=== PATIENT | female | born 1980 | race Two or more races ===

== ENCOUNTER 2023-05-28 21:01 | Inpatient (IN) ==
[2023-05-28] MEDS ORDERED: SODIUM CHLORIDE 0.9% 1,000 ML IV ONE ×2 (21:20→21:46)
[2023-05-28] MEDS ORDERED: METOPROLOL TARTRATE 1 MG/ML VIAL IV STA ×2 (21:46→23:00)
--- NOTE | 2023-05-28 21:47 | Emergency Department Note ---
Impression & Plan Atrial flutter, Palpitations, Hypokalemia, Hypophosphatemia ED Provider Note NAME: GABRIEL [id number] LAVERNE HAMPTON AGE: 42 SEX: F ARRIVES VIA: Ambulance INFORMANT: Patient ED PROVIDER(S): Tera Conway MD CHIEF COMPLAINT: Chest pain, palpitations PLAN: Disposition: Admit MEDICAL DECISION MAKING: The patient is a pleasant 42-year-old woman, Ecuadorean-speaking only from [place] who presents to the emergency department from [facility] for evaluation of tachycardia with heart rate as high as 180 per EMS report concern for SVT in the setting of the patient reporting symptoms of palpitations for the past 48 hours. Per EMS report patient's heart rate was in the 180s where SVT was suspected and did not respond to vagal maneuvers. EMS had administered 6 mg then 12 mg of adenosine without successful cardioversion. Patient was additionally treated with IV fluid hydration with 1 L normal saline and 1 g magnesium given history of hypomagnesemia with subsequent improvement in heart rate to the 130s-140s. Patient was also given full dose aspirin at her facility prior to transfer. Patient describes she has had intermittent episodes of palpitations over the past several months after being seen in the emergency department here in January for similar symptoms but she admits her palpitations were not as severe or fast then or in the interim but over the past couple of days has progressively worsened and became severe today with chest pressure. She reports a history of asthma but this has been controlled recently. She does note that in the past when using her albuterol nebulizer that this would trigger a faster heart rate and so has attempted to avoid this when possible and additionally only takes her Dulera when she thinks she needs it. She otherwise denies any recent fevers, cough, congestion. She reports some nausea associate with palpitations but denies any vomiting. History obtained directly from the patient from this provider, a [place] speaker. On my evaluation the patient is uncomfortable no acute distress, afebrile heart in the 130s-140s and vital signs otherwise stable. She appears clinically dry. EKG demonstrates suspected atrial flutter at [address] abnormality without overt ST elevation. Chest x-ray negative for acute cardiopulmonary process per my preliminary review. WBC 18.8K with neutrophil predominance though no left shift, nonspecific and may be related to ongoing RVR for 48 hours or more. H/H similar to prior. Platelets within normal limits. Potassium 2.6 and phosphorus 1.9 with repletion initiated. Chemistry without metabolic acidosis. Glucose is noted to be elevated at 234 without prior history of diabetes. LFTs are unremarkable. High-sensitivity troponin 14.2, mildly above upper limit of normal nonspecific. Lipase not elevated. TSH within normal limits. COVID-19 RNA, KASSANDRA test negative. Procalcitonin and hCG are pending. Patient was treated with IV fluid hydration in addition to electrolyte repletion as well as 5 mg of IV Lopressor which did result in improvement in heart rate to the 110s 120s and subsequent improvement in the patient's symptoms. However given persistence of the patient's tachycardia with suspicion of atrial flutter and electrolyte abnormalities the patient does agree with plan for admission for further management. Second dose of 5 mg of IV Lopressor administered. Case was discussed [facility], who will evaluate the patient for admission. Further management per admitting team. Triage Nursing notes reviewed and agree them. Prior/outside medical records reviewed Vital Signs: reviewed Differential diagnosis: Premature contractions, electrolyte abnormality, cardiac dysrhythmia, thyroid dysfunction, pulmonary embolism, infection, gastrointestinal, as well as other pathologies. ER treatment provided: See below. Diagnostics interpreted by me: ECG: Suspected atrial flutter, 135 bpm, nonspecific ST abnormality, no overt ST elevation or depression, QTc 570, QRS 84. Cardiac Monitoring: An order for continuous cardiac monitoring was placed and demonstrated Suspected atrial flutter, 135 bpm. Laboratory studies: See below Imaging studies: See below Consultation(s): [facility], who will evaluate the patient for admission. HPI:The patient is a pleasant 42-year-old woman, Ecuadorean-speaking only from [place] who presents to the emergency department from [facility] for evaluation of tachycardia with heart rate as high as 180 per EMS report concern for SVT in the setting of the patient reporting symptoms of palpitations for the past 48 hours. Per EMS report patient's heart rate was in the 180s where SVT was suspected and did not respond to vagal maneuvers. EMS had administered 6 mg then 12 mg of adenosine without successful cardioversion. Patient was additionally treated with IV fluid hydration with 1 L normal saline and 1 g magnesium given history of hypomagnesemia with subsequent improvement in heart rate to the 130s-140s. Patient was also given full dose aspirin at her facility prior to transfer. Patient describes she has had intermittent episodes of palpitations over the past several months after being seen in the emergency department here in January for similar symptoms but she admits her palpitations were not as severe or fast then or in the interim but over the past couple of days has progressively worse markell and became severe today with chest pressure. She reports a history of asthma but this has been controlled recently. She does note that in the past when using her albuterol nebulizer that this would trigger a faster heart rate and so has attempted to avoid this when possible and additionally only takes her Dulera when she thinks she needs it. She otherwise denies any recent fevers, cough, congestion. She reports some nausea associate with palpitations but denies any vomiting. History obtained directly from the patient from this provider, a [place] speaker. ROS: See above HPI for pertinent positives & negatives. A total of 10 systems reviewed and were otherwise negative. VITALS:See Below PHYSICAL EXAMINATION: GENERAL: Awake, alert, fatigued-appearing, in no distress HENT: Normocephalic, atraumatic. Oropharynx with dry mucous membranes and otherwise unremarkable. EYES: Normal conjunctiva. Sclera non-icteric. NECK: Supple. No nuchal rigidity. FROM. No JVD. RESPIRATORY: Clear to auscultation. CARDIAC: Tachycardic rate, normal rhythm. Extremities warm and well perfused. Pulses equal. ABDOMEN: Soft, non-distended. No tenderness to palpation. No rebound or guarding. No masses. RECTAL: Deferred. MUSCULOSKELETAL: Chest examination reveals no tenderness. The back is symmetrical on inspection without obvious abnormality. There is no CVA tenderness to palpation. No joint edema. LOWER EXTREMITIES: Calves are equal size bilaterally and non-tender. No edema. No discoloration. NEURO: Normal sensorium. No sensory or motor deficits noted. SKIN: No rash or jaundice noted. ED COURSE: Critical Care: I have personally spent greater than 45 minutes of critical care time in the direct management of this patient. This includes bedside care, interpretation of diagnostic studies, and testing, discussion with consultants, patient, and family members, and other required patient management activities. This 45 minutes is in excess of all separately billable procedures. Tera Conway MD Past Med/Surg History Medical History (Updated 05/29/23 @ 01:27 by Tera Conway MD) Hypokalemia Hypomagnesemia Palpitations Social History Smoking Status: Unknown if ever smoked Current Living Situation: Other Current Living Situation Comment: [facility] Allergies Allergies Allergy/AdvReac Type Severity Reaction Status Date / Time shrimp Allergy Severe From Verified 01/12/23 20:08 childhood Home Meds Home Medications Medication Instructions Recorded Confirmed mometasone-formoterol HFA 200 2 puff inhalation BID 01/12/23 05/29/23 mcg-5 mcg/actuation aerosol inhaler (Dulera) montelukast 10 mg tablet 10 mg PO DAILY 01/12/23 05/29/23 Previous Rx's Medication Instructions Recorded magnesium oxide 400 mg (241.3 mg 400 mg PO DAILY #7 tabs 01/12/23 magnesium) tablet (MagOx) potassium chloride 20 mEq 20 meq PO DAILY #7 tabs 01/12/23 tablet,extended release Results & Data (ED) Vital Signs Vital Signs - 24 hr 05/28/23 21:18 05/28/23 21:18 05/28/23 21:37 Pulse Rate 138 H Respiratory Rate 18 Respiratory Effort / Characteristics Non-Labored Spontaneous Respiratory Depth Normal Respiratory Pattern Regular Blood Pressure 111/57 L Blood Pressure Mean 75 Pulse Oximetry 99 99 99 Oxygen Delivery Method Room Air Room Air Room Air Oxygen Flow Rate 0 Sepsis Recent Fever Within 48 Hours No Sepsis New/Unexplained Change in Mental Status N/A Sepsis Action Taken by Nursing No Action Required 05/28/23 23:15 Pulse Rate 121 H Respiratory Rate Respiratory Effort / Characteristics Respiratory Depth Respiratory Pattern Blood Pressure 111/51 L Blood Pressure Mean Pulse Oximetry Oxygen Delivery Method Oxygen Flow Rate Sepsis Recent Fever Within 48 Hours Sepsis New/Unexplained Change in Mental Status Sepsis Action Taken by Nursing Laboratory Data 05/28/23 Unknown 05/28/23 Unknown Lab Results 05/28/23 05/28/23 05/28/23 Range/Units 22:59 Unknown Unknown WBC 18.86 H (4.8-10.8) K/ul RBC 3.58 L (4.20-5.40) M/uL Hgb 11.2 L (12.0-16.0) g/dl Hct 33.3 L (37.0-47.0) % MCV 93.0 (80.0-100.0) fL MCH 31.3 (25.0-34.0) pg MCHC 33.6 (32.0-36.0) g/dL RDW Std Deviation 48.6 H (36.4-46.3) fL RDW Coeff of Bola 14.3 (11.5-14.5) % Plt Count 306 (130-400) K/uL MPV 10.9 (9.4-12.4) fL Immature Gran % (Auto) 0.5 % Neut % (Auto) 89.2 % Lymph % (Auto) 5.4 % [place] % (Auto) 4.6 % Eos % (Auto) 0.0 % Baso % (Auto) 0.3 % Neut # (Auto) 16.82 H (1.40-6.50) K/uL Lymph # (Auto) 1.01 L (1.20-3.40) K/uL [place] # (Auto) 0.87 H (0.11-0.59) K/uL Eos # (Auto) 0.00 (0.00-0.50) K/uL Baso # (Auto) 0.06 (0.00-0.20) K/uL Immature Gran # (Auto) 0.10 (0.01-0.20) K/uL PT (9.0-12.0) Seconds INR (0.9-1.1) D-Dimer (0-500) ug/L FEU Sodium 140 (136-145) mmol/L Potassium 2.6 L (3.5-5.1) mmol/L Chloride 109 H (98-107) mmol/L Carbon Dioxide 21 (21-32) mmol/L Anion Gap 10 (3-11) BUN 8 (6-23) mg/dl Creatinine 0.63 (0.6-1.2) mg/dl Est Cr Clr Drug Dosing 90.8 ml/min Est GFR ( Amer) 127.3 ml/min Est GFR (Non-Af Amer) 109.9 ml/min BUN/Creatinine Ratio 12.7 (10-20) Glucose 234 H (70-99(Fasting)) mg/dl Calcium 8.4 L (8.6-10.3) mg/dl Phosphorus 1.9 L (2.5-4.9) mg/dl Magnesium 2.4 (1.7-2.4) mg/dl Total Bilirubin 0.8 (0.2-1.0) mg/dl AST 12 L (13-39) U/L ALT 10 (7-52) U/L Alkaline Phosphatase 64 (34-104) U/L Troponin I High Sens 14.2 H (0-14) pg/ml Total Protein 7.1 (6.0-8.3) gm/dl Albumin 4.1 (3.4-5.0) gm/dl Globulin 3.0 (2.5-4.0) gm/dl Albumin/Globulin Ratio 1.4 (0.9-2) Lipase 14 (11-82) U/L TSH 0.784 (0.300-4.500) uIu/ml SARS-CoV-2, RNA, NAAT NEGATIVE (NEGATIVE) 05/28/23 Range/Units Unknown WBC (4.8-10.8) K/ul RBC (4.20-5.40) M/uL Hgb (12.0-16.0) g/dl Hct (37.0-47.0) % MCV (80.0-100.0) fL MCH (25.0-34.0) pg MCHC (32.0-36.0) g/dL RDW Std Deviation (36.4-46.3) fL RDW Coeff of Bola (11.5-14.5) % Plt Count (130-400) K/uL MPV (9.4-12.4) fL Immature Gran % (Auto) % Neut % (Auto) % Lymph % (Auto) % [place] % (Auto) % Eos % (Auto) % Baso % (Auto) % Neut # (Auto) (1.40-6.50) K/uL Lymph # (Auto) (1.20-3.40) K/uL [place] # (Auto) (0.11-0.59) K/uL Eos # (Auto) (0.00-0.50) K/uL Baso # (Auto) (0.00-0.20) K/uL Immature Gran # (Auto) (0.01-0.20) K/uL PT 10.8 (9.0-12.0) Seconds INR 1.0 (0.9-1.1) D-Dimer 420 (0-500) ug/L FEU Sodium (136-145) mmol/L Potassium (3.5-5.1) mmol/L Chloride (98-107) mmol/L Carbon Dioxide (21-32) mmol/L Anion Gap (3-11) BUN (6-23) mg/dl Creatinine (0.6-1.2) mg/dl Est Cr Clr Drug Dosing ml/min Est GFR ( Amer) ml/min Est GFR (Non-Af Amer) ml/min BUN/Creatinine Ratio (10-20) Glucose (70-99(Fasting)) mg/dl Calcium (8.6-10.3) mg/dl Phosphorus (2.5-4.9) mg/dl Magnesium (1.7-2.4) mg/dl Total Bilirubin (0.2-1.0) mg/dl AST (13-39) U/L ALT (7-52) U/L Alkaline Phosphatase (34-104) U/L Troponin I High Sens (0-14) pg/ml Total Protein (6.0-8.3) gm/dl Albumin (3.4-5.0) gm/dl Globulin (2.5-4.0) gm/dl Albumin/Globulin Ratio (0.9-2) Lipase (11-82) U/L TSH (0.300-4.500) uIu/ml SARS-CoV-2, RNA, NAAT (NEGATIVE) Administered Medications Discontinued Medications Sodium Chloride (Nss) 1,000 mls @ 999 mls/hr IV .Q1H1M ONE Stop: 05/28/23 22:20 Last Infusion: 05/28/23 23:01 Dose: 0 mls/hr Documented By: Admin: 05/28/23 21:51 Dose: 999 mls/hr Documented By: CONCHA Sodium Chloride (Nss) 1,000 mls @ 999 mls/hr IV .Q1H1M ONE Stop: 05/28/23 22:46 Last Admin: 05/28/23 23:32 Dose: 999 mls/hr Documented By: RYANN Potassium Chloride (K Grover / Wtr) 10 meq in 100 mls @ 100 mls/hr IV Q1H REMBERTO Stop: 05/29/23 00:59 Last Admin: 05/29/23 01:14 Dose: 100 mls/hr Documented By: Infusion: 05/29/23 00:15 Dose: 100 mls/hr Documented By: Admin: 05/28/23 23:15 Dose: 100 mls/hr Documented By: RYANN Metoprolol Tartrate (Metoprolol Tartrate 1 Mg/Ml Vial) 5 mg IV NOW STA Stop: 05/28/23 21:47 Last Admin: 05/28/23 21:51 Dose: 5 mg Documented By: CONCHA Metoprolol Tartrate (Metoprolol Tartrate 1 Mg/Ml Vial) 5 mg IV NOW STA Stop: 05/28/23 23:01 Last Admin: 05/28/23 23:15 Dose: 5 mg Documented By: RYANN Metoprolol Tartrate (Metoprolol Tartrate 25 Mg Tab) 25 mg PO NOW STA Stop: 05/29/23 00:13 Last Admin: 05/29/23 01:14 Dose: Not Given Documented By: RYANN Potassium Chloride (Potassium Chloride Crtab 20 Meq Tabcr) 40 meq PO NOW STA Stop: 05/28/23 22:58 Last Admin: 05/28/23 23:14 Dose: 40 meq Documented By: RYANN Potassium Phosphate (Pot Phosphate Monobasic W/ Sod Tab) 2 tab PO NOW STA Stop: 05/28/23 22:58 Last Admin: 05/28/23 23:14 Dose: 2 tab Documented By: RYANN Discharge Plan Visit Data Chief Complaint: Arrhythmia/Palpitations Stated Complaint: CHEST PAIN ED Provider: Tera Conway Discharge Problem: Atrial flutter, Palpitations, Hypokalemia, Hypophosphatemia Discharge Instructions Interventions: ED Discharge Assessment Last Done: 05/29/23 01:21
[2023-05-28 22:01] LABS: Basophils # (auto) 0.06 K/uL (0.00-0.20); Basophils % (auto) 0.3 %; Hematocrit (blood only) 33.3 % (37.0-47.0); Hemoglobin 11.2 g/dl (12.0-16.0); Immature Granulocytes % (auto) 0.5 %; Lymphocytes # (auto) 1.01 K/uL (1.20-3.40); Lymphocytes % (auto) 5.4 %; Mean Corpuscular Hemoglobin 31.3 pg (25.0-34.0); Mean Corpuscular Hgb Conc 33.6 g/dL (32.0-36.0); Mean Platelet Volume 10.9 fL (9.4-12.4); Monocytes # (auto) 0.87 K/uL (0.11-0.59); Monocytes % (auto) 4.6 %; Neutrophils # (auto) 16.82 K/uL (1.40-6.50); Neutrophils % (auto) 89.2 %; Platelet Count 306 K/uL (130-400); RDW Coefficient of Variation 14.3 % (11.5-14.5); RDW Standard Deviation 48.6 fL (36.4-46.3); Red Blood Count 3.58 M/uL (4.20-5.40); White Blood Count 18.86 K/ul (4.8-10.8)
[2023-05-28 22:24] LABS: Albumin Globulin Ratio 1.4 (0.9-2); Albumin Level 4.1 gm/dl (3.4-5.0); BUN Creatinine Ratio 12.7 (10-20); Bilirubin,Total 0.8 mg/dl (0.2-1.0); Calcium 8.4 mg/dl (8.6-10.3); Creatinine Clr Calc Pharmacy 90.8 ml/min; Est GFR (African American) 127.3 ml/min; Est GFR (Non-African American) 109.9 ml/min; Magnesium 2.4 mg/dl (1.7-2.4); Phosphorus 1.9 mg/dl (2.5-4.9); Potassium 2.6 mmol/L (3.5-5.1); Total Protein 7.1 gm/dl (6.0-8.3)
[2023-05-28 22:30] LABS: Troponin I High Sensitivity 14.2 pg/ml (0-14)
[2023-05-28 22:40] LABS: Thyroid Stimulating Hormone 0.784 uIu/ml (0.300-4.500)
[2023-05-28 22:49] LABS: D Dimer 420 ug/L FEU (0-500); Prothrombin Time 10.8 Seconds (9.0-12.0)
[2023-05-28] MEDS ORDERED: POT PHOSPHATE MONOBASIC W/ SOD TAB PO STA (22:57)
[2023-05-28] MEDS ORDERED: POTASSIUM CHLORIDE CRTAB 20 MEQ TABCR PO STA (22:57)
[2023-05-28] MEDS: POTASSIUM CHLORIDE / WTR 10 MEQ/100 ML PLCT IV SCH (23:15)
[2023-05-29] MEDS ORDERED: METOPROLOL TARTRATE 25 MG TAB PO STA (00:12)
--- NOTE | 2023-05-29 00:17 | History & Physical Report ---
Date of Service May 29, 2023 Assessment & Plan (1) Tachyarrhythmia: Plan: 42-year-old female past med significant for asthma, history of COVID 2 years ago, history of palpitations, history of familial hyperuricemia and kidney stones as per patient who [facility] was brought in because of SVT. Tachyarrhythmia SVT Questionable underlying atrial flutter Improved with IV Lopressor IV fluids IV Lopressor as needed Start on p.o. Lopressor 25 twice daily Serial cardiac enzymes and echo Monitor in telemetry Consult in a.m. History of asthma Patient is not using her inhalers regularly because of concerns for palpitations Currently stable History of familial hyperuricemia sice child as per patient Patient states she takes allopurinol 100 mg p.o. daily Electrolyte abnormalities We will replace Follow repeat labs DVT prophylaxis Lovenox Disposition Telemetry floor Full code History of Present Illness Primary Care Provider: Gerald Stewart DO 42-year-old female past med significant for asthma, history of COVID 2 years ago, history of palpitations, history of familial hyperuricemia since child and kidney stones as per patient who is currently at [facility] was brought in because of SVT. Patient states since last 2 years when she had COVID she is having these palpitations on and off. She was in the ER in January of this year with palpitations and found to have hypokalemia and hypomagnesia which were replaced and after fluids she felt better and she was discharged. Patient states since last 2 days she is feeling palpitations but kept quiet hoping they will resolve but they are not getting better. States she felt some chest pain going to the neck yesterday but that resolved now. [place] nauseous but resolved now. [place] short of breath but is better now. No fevers. Has some headache. Vision is okay. No runny nose or sore throat. No difficulty swallowing. States he is eating okay. Somewhat constipated. Denies blood in the stools. Micturating fine. No rash currently. Seems for EMS her heart rate was in the 180s and received IV adenosine. In the ER her heart rate was in 140s. Received currently 2 dose of IV Lopressor 5mg. Heart rate in 100s to 120 range. Blood pressure somewhat soft. Resting comfortably. Patient is Czech- speaking and have to use translation service. Past medical history as mentioned above Past surgical history. Cholecystectomy Social history. Denies smoking. No alcohol use. No drug use Family history. Father had asthma, CAD, kidney disease, and female hyperuricemia. Paternal grandmother asthma. Maternal grand mother had colon cancer, 2 AUNTS has breast cancer. Maternal grandmother brother had stomach cancer Allergies Allergy/AdvReac Type Severity Reaction Status Date / Time shrimp Allergy Severe From Verified 01/12/23 20:08 childhood Home Medications Medication Instructions Recorded Confirmed Type magnesium oxide 400 mg (241.3 mg 400 mg PO DAILY #7 tabs 01/12/23 05/29/23 Rx magnesium) tablet (MagOx) mometasone-formoterol HFA 200 2 puff inhalation BID 01/12/23 05/29/23 History mcg-5 mcg/actuation aerosol inhaler (Dulera) montelukast 10 mg tablet 10 mg PO DAILY 01/12/23 05/29/23 History potassium chloride 20 mEq 20 meq PO DAILY #7 tabs 01/12/23 05/29/23 Rx tablet,extended release Past Med/Surg History Medical History (Updated 05/29/23 @ 01:38 by Derrick Perez MD) Hypokalemia Hypomagnesemia Palpitations Social History Smoking Status: Unknown if ever smoked Preferred Language: Czech Communication Ability: Effective Communication Tools: IPad Demi Chef Required: Yes Beliefs That Will Affect Care: None Current Living Situation: Other Current Living Situation Comment: Currently at an [facility] shelter center. Feels Safe at Home: Yes Safety Concerns: Feels Safe At This Time Review of Systems Review of Systems: All systems reviewed & are unremarkable except as noted in HPI & below Physical Exam Physical Exam: General- not in distress Head- atraumatic Eyes- PERRL. ENT- oropharynx clear Neck- supple, no JVD. Lungs- clear to auscultation no wheezing or crackles Heart- regular rhythm; tachycardia, no murmur, no gallop. Abdomen- normal bowel sounds, soft, nontender, no distension. Extremities- no pretibial edema, no erythema seen. Neuro- alert, oriented x 3; PERRL, no facial palsy; no dysarthria; obeys commands. Skin- warm & dry Results & Data Results & Data Vital Signs (Past 12 Hours) Vital Signs Pulse Resp BP Pulse Ox O2 Del Method O2 Flow Rate 05/28/23 23:15 121 H 111/51 L 05/28/23 21:37 99 Room Air 0 05/28/23 21:18 99 Room Air 05/28/23 21:18 138 H 18 111/57 L 99 Room Air Diagnostic Findings Laboratory Results WBC 18.86 K/ul (4.8-10.8) H 05/28/23 Unknown RBC 3.58 M/uL (4.20-5.40) L 05/28/23 Unknown Hgb 11.2 g/dl (12.0-16.0) L 05/28/23 Unknown Hct 33.3 % (37.0-47.0) L 05/28/23 Unknown MCV 93.0 fL (80.0-100.0) 05/28/23 Unknown MCH 31.3 pg (25.0-34.0) 05/28/23 Unknown MCHC 33.6 g/dL (32.0-36.0) 05/28/23 Unknown RDW Std Deviation 48.6 fL (36.4-46.3) H 05/28/23 Unknown RDW Coeff of Bola 14.3 % (11.5-14.5) 05/28/23 Unknown Plt Count 306 K/uL (130-400) 05/28/23 Unknown MPV 10.9 fL (9.4-12.4) 05/28/23 Unknown Immature Gran % (Auto) 0.5 % 05/28/23 Unknown Neut % (Auto) 89.2 % 05/28/23 Unknown Lymph % (Auto) 5.4 % 05/28/23 Unknown [place] % (Auto) 4.6 % 05/28/23 Unknown Eos % (Auto) 0.0 % 05/28/23 Unknown Baso % (Auto) 0.3 % 05/28/23 Unknown Neut # (Auto) 16.82 K/uL (1.40-6.50) H 05/28/23 Unknown Lymph # (Auto) 1.01 K/uL (1.20-3.40) L 05/28/23 Unknown [place] # (Auto) 0.87 K/uL (0.11-0.59) H 05/28/23 Unknown Eos # (Auto) 0.00 K/uL (0.00-0.50) 05/28/23 Unknown Baso # (Auto) 0.06 K/uL (0.00-0.20) 05/28/23 Unknown Immature Gran # (Auto) 0.10 K/uL (0.01-0.20) 05/28/23 Unknown PT 10.8 Seconds (9.0-12.0) 05/28/23 Unknown INR 1.0 (0.9-1.1) 05/28/23 Unknown D-Dimer 420 ug/L FEU (0-500) 05/28/23 Unknown Sodium 140 mmol/L (136-145) 05/28/23 Unknown Potassium 2.6 mmol/L (3.5-5.1) L 05/28/23 Unknown Chloride 109 mmol/L (98-107) H 05/28/23 Unknown Carbon Dioxide 21 mmol/L (21-32) 05/28/23 Unknown Anion Gap 10 (3-11) 05/28/23 Unknown BUN 8 mg/dl (6-23) 05/28/23 Unknown Creatinine 0.63 mg/dl (0.6-1.2) 05/28/23 Unknown Est Cr Clr Drug Dosing 90.8 ml/min 05/28/23 Unknown Est GFR ( Amer) 127.3 ml/min 05/28/23 Unknown Est GFR (Non-Af Amer) 109.9 ml/min 05/28/23 Unknown BUN/Creatinine Ratio 12.7 (10-20) 05/28/23 Unknown Glucose 234 mg/dl (70-99(Fasting)) H 05/28/23 Unknown Calcium 8.4 mg/dl (8.6-10.3) L 05/28/23 Unknown Phosphorus 1.9 mg/dl (2.5-4.9) L 05/28/23 Unknown Magnesium 2.4 mg/dl (1.7-2.4) 05/28/23 Unknown Total Bilirubin 0.8 mg/dl (0.2-1.0) 05/28/23 Unknown AST 12 U/L (13-39) L 05/28/23 Unknown ALT 10 U/L (7-52) 05/28/23 Unknown Alkaline Phosphatase 64 U/L (34-104) 05/28/23 Unknown Troponin I High Sens 14.2 pg/ml (0-14) H 05/28/23 Unknown Total Protein 7.1 gm/dl (6.0-8.3) 05/28/23 Unknown Albumin 4.1 gm/dl (3.4-5.0) 05/28/23 Unknown Globulin 3.0 gm/dl (2.5-4.0) 05/28/23 Unknown Albumin/Globulin Ratio 1.4 (0.9-2) 05/28/23 Unknown Lipase 14 U/L (11-82) 05/28/23 Unknown TSH 0.784 uIu/ml (0.300-4.500) 05/28/23 Unknown HCG, Qual Negative (Negative) 05/29/23 00:20 SARS-CoV-2, RNA, NAAT NEGATIVE (NEGATIVE) 05/28/23 22:59 ECG Additional Comments: ECG. Sinus tachycardia rate of 135. Nonspecific ST abnormality. Code Status & VTE Plan VTE Prophylaxis Plan VTE Prophylaxis will be ordered: Yes
[2023-05-29] MEDS: POTASSIUM CHLORIDE / WTR 10 MEQ/100 ML PLCT IV SCH (01:14)
[2023-05-29] MEDS ORDERED: POLYETHYLENE (MIRALAX) 17 GM PACK PO PRN (01:22)
[2023-05-29] MEDS ORDERED: NITROGLYCERIN SL 0.4 MG/TAB TAB SL PRN (01:22)
[2023-05-29] MEDS ORDERED: ACETAMINOPHEN 325 MG TAB PO PRN (01:22)
[2023-05-29] MEDS ORDERED: METOPROLOL TARTRATE 1 MG/ML VIAL IV PRN (01:22)
[2023-05-29] MEDS ORDERED: POTASSIUM PHOS 3 MMOL/1 ML INFUSION IV STA (01:22)
[2023-05-29 01:28] LABS: Pregnancy Test, Serum Negative (Negative)
[2023-05-29] MEDS ORDERED: POTASSIUM PHOSPHATE 24 MMOL in SODIUM CHLORIDE 0.9% 500 ML IV ONE (01:45)
[2023-05-29 02:30] LABS: Procalcitonin 0.05 ng/ml (0-0.5)
[2023-05-29] MEDS: SODIUM CHLORIDE 0.9% 1,000 ML IV SCH ×2 (02:57→07:57)
[2023-05-29 05:08] LABS: Hematocrit (blood only) 27.6 % (37.0-47.0); Hemoglobin 9.5 g/dl (12.0-16.0); Mean Corpuscular Hemoglobin 30.9 pg (25.0-34.0); Mean Corpuscular Hgb Conc 34.4 g/dL (32.0-36.0); Mean Corpuscular Volume 89.9 fL (80.0-100.0); Mean Platelet Volume 10.8 fL (9.4-12.4); Platelet Count 262 K/uL (130-400); RDW Coefficient of Variation 14.6 % (11.5-14.5); RDW Standard Deviation 48.6 fL (36.4-46.3); Red Blood Count 3.07 M/uL (4.20-5.40); White Blood Count 10.71 K/ul (4.8-10.8)
[2023-05-29 05:18] LABS: Calcium 7.2 mg/dl (8.6-10.3); Creatinine Clr Calc Pharmacy 124.3 ml/min; Est GFR (African American) 141.2 ml/min; Est GFR (Non-African American) 121.8 ml/min; Phosphorus 2.7 mg/dl (2.5-4.9); Potassium 3.1 mmol/L (3.5-5.1)
[2023-05-29 05:25] LABS: Troponin I High Sensitivity 41.4 pg/ml (0-14)
[2023-05-29 06:07] LABS: Basophils # (auto) 0.01 K/uL (0.00-0.20); Basophils % (auto) 0.1 %; Immature Granulocytes # (auto) 0.02 K/uL (0.01-0.20); Immature Granulocytes % (auto) 0.2 %; Lymphocytes # (auto) 0.31 K/uL (1.20-3.40); Lymphocytes % (auto) 2.9 %; Monocytes # (auto) 0.12 K/uL (0.11-0.59); Monocytes % (auto) 1.1 %; Neutrophils # (auto) 10.25 K/uL (1.40-6.50); Neutrophils % (auto) 95.7 %
--- NOTE | 2023-05-29 07:15 | XRay Report ---
XR chest 1V portable CLINICAL HISTORY: Chest pain, nonspecific TECHNIQUE: Single frontal radiograph of the chest was obtained. Comparison: Comparison is made to chest radiograph 01/12/2023 FINDINGS: No lines and tubes are seen. The cardiomediastinal silhouette is normal. The lungs are clear. No evid ence of pleural effusion or pneumothorax. IMPRESSION: No acute chest disease. ACT 112: Negative or not required by law. Electronically signed by: Franck Howard M.D. 05/29/2023 7:14 AM
[2023-05-29] MEDS: MONTELUKAST SODIUM 10 MG TABLET PO SCH (07:56)
[2023-05-29] MEDS: ENOXAPARIN INJ 40 MG/0.4 ML SYR SQ SCH (07:57)
[2023-05-29] MEDS ORDERED: POTASSIUM CHLORIDE CRTAB 20 MEQ TABCR PO STA ×2 (08:16→15:06)
--- NOTE | 2023-05-29 08:42 | Electrocardiogram Report ---
Test Reason : Blood Pressure : / mmHG Vent. Rate : 135 BPM Atrial Rate : 135 BPM P-R Int : 112 ms QRS Dur : 084 ms QT Int : 380 ms P-R-T Axes : 000 059 065 degrees QTc Int : 570 ms Sinus tachycardia Nonspecific ST abnormality Abnormal ECG When compared with ECG of 12-JAN-2023 18:31, No significant change was found Confirmed by Marbin Swartz ([id number]) on 05/29/2023 8:42:16 AM Referred By: REFERRED SELF Confirmed By:Marbin Swartz
[2023-05-29] MEDS ORDERED: METOPROLOL TARTRATE 25 MG TAB PO SCH (09:00)
--- NOTE | 2023-05-29 09:35 | Cardiology Consultation ---
Date of Consultation May 29, 2023 Assessment & Plan (1) Tachyarrhythmia: (2) Hypokalemia: (3) Palpitations: Plan Patient seen/examined today in collaboration with Dr. Augie Reinoso. See supervising physician's documentation for recommendations and plan of care. Elizabeth Hilton PA-C [facility] Card[facility] Supervising Physician Co-Signing Physician Notes Pt seen and examined with [facility] staff Concur with observations and plans 42 yo woman presenting with palpitations * EMS called * HR 180 BPM * Rx with IV adenosine * HR improved to 130's * EKG - sinus tach 130's; nonspecific ST abnormalities * No Delta Waves * QTC does not appear to be markedly prolonged (although reported to be greater than 500ms) * No Brugada pattern * Concern for SVT * Tn - 14 - 41 * K+ on presentation - 2.6 * Mag++ on presentation - 2.4 * TSH - 0.7 - WNL * Beta HCG - negative * Tox screen - PENDING * No major HTN * Hx of hypokalemia Plans: * SVT * SVT may be driven by hypokalemia * Underlying reason for Hypokalemia unclear as patient is not on diuretics * Question of potassium wasting - * Pt has metabolic acidosis - non gap - she may have an RTA leading to hypokalemia * Suspect renal consult may be helpful * Transthoracic ECHO (pending) * Lipid Panel as an outpt * Consider * Continue beta blockers * Stop Lopressor * Start Toprol XL 25 mg po per day Augie Reinoso History of Present Illness Reason for Consultation: Tachycardia; SVT Requesting Physician: Dr. Perez Attending Physician: Dr. Reinoso History of Present Illness Patient is a 42 year old female presenting to [facility] from [facility] for complaints of palpitations. Patient is Sami Speaking History includes: 1. Asthma 2. History of COVID several years ago, which palpitations started around this time 3. 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 History of hypokalemia Patient reports feeling increased palpitations over the last several days. Symptoms worsened yesterday and EMS was summoned to her facility. Apparently her HR was 180 bmp and she received dose of IV adenosine, improving HR to 140s. Rhythm strips not available to review. EKG on arrival to ER yesterday demonstrated sinus tachycardia at 135 bmp. WBC was elevated at 18. Mild anemia noted but unchanged. Potassium was significantly low at 2.6. Supplements started. Potassium remains low at 3.1 this morning. Magnesium was 2.4. Minimally elevated HS troponin at 14.2 increasing to 41.4 this morning. Thyroid levels acceptable. Allergies Allergy/AdvReac Type Severity Reaction Status Date / Time shrimp Allergy Severe From Verified 01/12/23 20:08 childhood Home Medications Medication Instructions Recorded Confirmed Type magnesium oxide 400 mg (241.3 mg 400 mg PO DAILY #7 tabs 01/12/23 05/29/23 Rx magnesium) tablet (MagOx) mometasone-formoterol HFA 200 2 puff inhalation BID 01/12/23 05/29/23 History mcg-5 mcg/actuation aerosol inhaler (Dulera) montelukast 10 mg tablet 10 mg PO DAILY 01/12/23 05/29/23 History potassium chloride 20 mEq 20 meq PO DAILY #7 tabs 01/12/23 05/29/23 Rx tablet,extended release Patient History Medical History (Updated 05/29/23 @ 01:38 by Derrick Perez MD) Hypokalemia Hypomagnesemia Palpitations Social History Smoking Status: Unknown if ever smoked Preferred Language: Sami Communication Ability: Effective Communication Tools: IPad Household Coordinator Required: Yes Beliefs That Will Affect Care: None Current Living Situation: Other Current Living Situation Comment: [facility] at [facility]. Feels Safe at Home: Yes Safety Concerns: Feels Safe At This Time Review of Systems Review of Systems: All systems reviewed & are unremarkable except as noted in HPI & below Physical Exam Physical Exam: No elevation in JVP S1S2 tachycardic 2/6 systolic murmur CTA B + BS No c/c/e Constitutional: WD/WN, vitals as above well developed; no acute distress Neck: trachea midline, no thyromegaly Respiratory: normal respiratory effort; no labored breathing Auscultation: no crackles, no rales and no rhonchi Cardiovascular: Rate/Rhythm: regular rate, regular rhythm and + tachycardic Heart Sounds: + murmur (2/6 systolic murmur) Vessels: no JVD Extremities: no edema Gastrointestinal (Abdomen): normal bowel sounds, soft, nontender, no hepatosplenomegaly Neurologic: PERRL, EOMI, accommodation nl, no face palsy, no dysarthria Results & Data Vital Signs (Past 12 Hours) Vital Signs Pulse Pulse Resp BP BP Pulse Ox Pulse Ox 05/29/23 08:30 105 H 18 18 L 05/29/23 08:30 109/59 L 05/29/23 08:02 109/47 L 05/29/23 08:02 110 H 18 05/29/23 08:00 124 H 20 05/29/23 07:58 106/54 L 05/29/23 07:58 117 H 17 05/29/23 07:30 109 H 20 05/29/23 07:00 114 H 18 05/29/23 07:00 103/58 L 05/29/23 08:30 98 05/29/23 06:08 114 H 20 97/50 L 97 05/29/23 01:30 122 H 05/28/23 21:28 131 H 05/29/23 02:00 127 H 18 94/43 L 93 05/28/23 23:15 121 H 111/51 L 05/28/23 21:37 99 05/28/23 21:18 99 05/28/23 21:18 138 H 18 111/57 L 99 O2 Del Method O2 Del Method O2 Flow Rate 05/29/23 08:30 05/29/23 08:30 05/29/23 08:02 05/29/23 08:02 05/29/23 08:00 05/29/23 07:58 05/29/23 07:58 05/29/23 07:30 05/29/23 07:00 05/29/23 07:00 05/29/23 08:30 Room Air 05/29/23 06:08 Room Air 05/29/23 01:30 05/28/23 21:28 05/29/23 02:00 Room Air 05/28/23 23:15 05/28/23 21:37 Room Air 0 05/28/23 21:18 Room Air 05/28/23 21:18 Room Air Laboratory Results Cardiac Enzymes 05/28/23 05/29/23 Range/Units Unknown 04:23 AST 12 L (13-39) U/L Troponin I High Sens 14.2 H 41.4 H D (0-14) pg/ml Coagulation 05/28/23 Range/Units Unknown PT 10.8 (9.0-12.0) Seconds CBC 05/28/23 05/29/23 Range/Units Unknown 04:23 WBC 18.86 H 10.71 (4.8-10.8) K/ul RBC 3.58 L 3.07 L (4.20-5.40) M/uL Hgb 11.2 L 9.5 L (12.0-16.0) g/dl Hct 33.3 L 27.6 L (37.0-47.0) % Plt Count 306 262 (130-400) K/uL Neut # (Auto) 16.82 H 10.25 H (1.40-6.50) K/uL Lymph # (Auto) 1.01 L 0.31 L (1.20-3.40) K/uL [place] # (Auto) 0.87 H 0.12 (0.11-0.59) K/uL Eos # (Auto) 0.00 0.00 (0.00-0.50) K/uL Baso # (Auto) 0.06 0.01 (0.00-0.20) K/uL Comprehensive Metabolic Panel 05/28/23 05/29/23 Range/Units Unknown 04:23 Sodium 140 142 (136-145) mmol/L Potassium 2.6 L 3.1 L (3.5-5.1) mmol/L Chloride 109 H 117 H (98-107) mmol/L Carbon Dioxide 21 19 L (21-32) mmol/L BUN 8 6 (6-23) mg/dl Creatinine 0.63 0.46 L (0.6-1.2) mg/dl Glucose 234 H 136 H (70-99(Fasting)) mg/dl Calcium 8.4 L 7.2 L (8.6-10.3) mg/dl AST 12 L (13-39) U/L ALT 10 (7-52) U/L Alkaline Phosphatase 64 (34-104) U/L Total Protein 7.1 (6.0-8.3) gm/dl Albumin 4.1 (3.4-5.0) gm/dl Intake and Output 05/28/23 05/29/23 05/29/23 22:59 06:59 14:59 Intake Total 2200 / 2200 1133 / 1133 Balance 2199 / 0 1133 / 1133 Intake: IV 2199 / 0 1133 / 1133 Potassium Chloride / Wtr 10 meq 200 / 200 In 100 ml @ 100 mls/hr IV Q1H [facility] Rx#:[id number] Potassium Phosphate 24 mmol In 508 / 508 Sodium Chloride 0.9% 500 ml @ 88 mls/hr IV ONE ONE Rx#: [id number] Sodium Chloride 0.9% 1,000 ml @ 2000 / 2000 625 / 625 125 mls/hr IV .Q8H [facility] Rx#: [id number] Other: Weight 56.6 kg Weight Measurement Method Built in [facility] Diagnostic Findings Telemetry reviewed: NSR and Sinus tachycardia with heart rates ranging 70-120's Echo pending Repeat EKG pending EKG on arrival 05/28/23: Sinus tachycardia at [address]/T wave abnormality in lateral leads No change from January 2023 Chest X-Ray 05/28/23 21:18 XR chest 1V portable CLINICAL HISTORY: Chest pain, nonspecific TECHNIQUE: Single frontal radiograph of the chest was obtained. Comparison: Comparison is made to chest radiograph 01/12/2023 FINDINGS: No lines and tubes are seen. The cardiomediastinal silhouette is normal. The lungs are clear. No evidence of pleural effusion or pneumothorax. IMPRESSION: No acute chest disease. ACT 112: Negative or not required by law. Electronically signed by: Franck Howard M.D. 05/29/2023 7:14 AM Medications Administered Current Inpatient Medications Acetaminophen (Acetaminophen 325 Mg Tab) 650 mg PO Q4H PRN PRN Reason: Pain or Fever Stop: 06/28/23 01:21 Enoxaparin Sodium (Enoxaparin Inj 40 Mg/0.4 Ml Syr) 40 mg SQ Q24H REMBERTO Stop: 06/28/23 08:59 Last Admin: 05/29/23 07:57 Dose: 40 mg Sodium Chloride (Nss) 1,000 mls @ 125 mls/hr IV .Q8H REMBERTO Stop: 06/28/23 01:21 Last Admin: 05/29/23 07:57 Dose: 125 mls/hr Metoprolol Tartrate (Metoprolol Tartrate 25 Mg Tab) 25 mg PO BID REMBERTO Stop: 06/28/23 08:59 Last Admin: 05/29/23 07:56 Dose: 25 mg Metoprolol Tartrate (Metoprolol Tartrate 1 Mg/Ml Vial) 5 mg IV Q6 PRN PRN Reason: Tachycardia Stop: 06/28/23 01:21 Montelukast Sodium (Montelukast Sodium 10 Mg Tablet) 10 mg PO DAILY REMBERTO Stop: 06/28/23 08:59 Last Admin: 05/29/23 07:56 Dose: 10 mg Nitroglycerin (Nitroglycerin Sl 0.4 Mg/Tab Tab) 0.4 mg SL Q5M PRN PRN Reason: Chest Pain Stop: 06/28/23 01:21 Polyethylene Glycol (Polyethylene (Miralax) 17 Gm Pack) 17 gm PO DAILY PRN PRN Reason: Constipation Stop: 06/28/23 01:21
--- NOTE | 2023-05-29 14:28 | Electrocardiogram Report ---
Test Reason : Blood Pressure : / mmHG Vent. Rate : 113 BPM Atrial Rate : 113 BPM P-R Int : 168 ms QRS Dur : 078 ms QT Int : 352 ms P-R-T Axes : 050 037 038 degrees QTc Int : 482 ms Sinus tachycardia Incomplete right bundle branch block Normal ECG When compared with ECG of 28-MAY-2023 21:24, No significant change was found Confirmed by Marbin Swartz ([id number]) on 05/29/2023 2:27:46 PM Referred By: REFERRED SELF Confirmed By:Marbin Swartz
--- NOTE | 2023-05-29 14:28 | Electrocardiogram Report ---
Test Reason : Blood Pressure : / mmHG Vent. Rate : 095 BPM Atrial Rate : 095 BPM P-R Int : 168 ms QRS Dur : 076 ms QT Int : 368 ms P-R-T Axes : 040 054 041 degrees QTc Int : 462 ms Normal sinus rhythm Incomplete right bundle branch block Low voltage QRS Borderline ECG When compared with ECG of 29-MAY-2023 07:20, No significant change was found Confirmed by Marbin Swartz ([id number]) on 05/29/2023 2:27:58 PM Referred By: REFERRED SELF Confirmed By:Marbin Swartz
--- NOTE | 2023-05-29 14:39 | Nephrology Consultation ---
Date of Consultation May 29, 2023 Assessment & Plan (1) Hypokalemia: 2 times she was found to have low K ( actually very low) without any obvious causes ( diuretics, Severe Vomiting or Diarrhea or severe malnutrition). Also nothing to suggest she is taking OTC diuretics or laxatives as part of eating di sorder or trying to loose weight desperately. 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 Does not have met acidosis--normal for Chloride to go up and Bicarb to go down after Aggressive Normal Saline infusion. No need to do workup for RTA at this time nor will be accurate. However will do Fractional excretion of Potassium and magnesium to have some idea. Will do urine K, urine mag, urine Na and urine Creat for this. Given she has already got iv and oral K and mag may not be accurate. No urine sample done on Admission so will have to do now. after that will give more k --PO is better. Also no need of IV fluid--Can stop it. (2) Tachyarrhythmia: Low electrolytes can contribute harriet when K is as low as 2.6. ECHO reviewed and is normal (3) Atrial flutter: per cards. History of Present Illness Reason for Consultation: Hypokalemia Attending Physician: Matthew Taylor MD History of Present Illness 42/F with asthma, history of COVID 2 years ago, history of palpitations, history of familial hyperuricemia since childhood and kidney stones who [facility] was brought in because of SVT. For the last 2 years after COVID she is having these palpitations on and off. She was in the ER in January with palpitations and found to have hypokalemia and hypomagnesia which were replaced and after fluids she felt better and she was discharged. Patient statesfor the last 2 days she is having palpitations.Also has some chest pain and neck pain. [place] nauseous but resolved now. [place] short of breath but is better now. No fevers. Has some headache. Vision is okay. No runny nose or sore throat. No difficulty swallowing. States he is eating okay. Somewhat constipated. Denies blood in the stools. Micturating fine. No rash currently. Seems for EMS her heart rate was in the 180s and received IV adenosine. In the ER her heart rate was in 140s.Resting comfortably. Patient is Syrian-speaking and have to use translation service. K was 2.6 today and 2.5 back in January. Mag was 1.5 in January but normal today. as per med list takes 20 meq daily of kcl and 1 tab of mag. Since admission has been seen by cardiology for tachycardias. has got iv and oral Potassium and also kphos. K was still low at 3.1 but ma and phos normal now. AG is normal. bicarb dropped and Chloride went up but only after getting lot of NS. Past medical history :asthma, history of COVID 2 years ago, history of palpitations, history of familial hyperuricemia since childhood and kidney ston es Past surgical history. Cholecystectomy Social history. Denies smoking. No alcohol use. No drug use Family history. Father had asthma, CAD, kidney disease, and familial hyperuricemia. Paternal grandmother asthma. Maternal grand mother had colon cancer, 2 AUNTS has breast cancer. Maternal grandmother brother had stomach cancer ROS--as detailed in HPI. otherwise 12 systems reviewed and negative Physical Exam Physical Exam: No resp Distress. neck Supple. MM--moist. Constitutional: well developed; no acute distress Neck: No JVD Respiratory: normal respiratory effort. no crackles, no rales and no rhonchi Cardiovascular: Rate/Rhythm: regular rate, regular rhythm and + tachycardic Heart Sounds: + murmur (2/6 systolic murmur) no edema Gastrointestinal (Abdomen): soft, nontender, Neurologic: No focal deicit Allergies Allergy/AdvReac Type Severity Reaction Status Date / Time shrimp Allergy Severe From Verified 01/12/23 20:08 childhood Home Medications Medication Instructions Recorded Confirmed Type magnesium oxide 400 mg (241.3 mg 400 mg PO DAILY #7 tabs 01/12/23 05/29/23 Rx magnesium) tablet (MagOx) mometasone-formoterol HFA 200 2 puff inhalation BID 01/12/23 05/29/23 History mcg-5 mcg/actuation aerosol inhaler (Dulera) montelukast 10 mg tablet 10 mg PO DAILY 01/12/23 05/29/23 History potassium chloride 20 mEq 20 meq PO DAILY #7 tabs 01/12/23 05/29/23 Rx tablet,extended release Patient History Medical History Hypokalemia Hypomagnesemia Palpitations Social History Smoking Status: Unknown if ever smoked Preferred Language: Syrian Communication Ability: Effective Communication Tools: IPad Corporate Quality Engineer Required: Yes Beliefs That Will Affect Care: None Current Living Situation: Other Current Living Situation Comment: [facility]. Feels Safe at Home: Yes Safety Concerns: Feels Safe At This Time Results & Data Vital Signs (Past 12 Hours) Vital Signs Pulse Pulse Resp BP BP Pulse Ox Pulse Ox 05/29/23 13:30 108 H 23 97 05/29/23 13:30 113/66 05/29/23 13:00 94 H 18 05/29/23 13:00 105/69 05/29/23 12:30 98 H 21 05/29/23 12:00 111 H 20 05/29/23 11:30 97 H 20 05/29/23 11:30 109/69 05/29/23 11:00 99 H 21 05/29/23 11:00 106/63 05/29/23 11:00 106/63 05/29/23 10:30 94 H 17 05/29/23 10:30 95/74 L 05/29/23 10:00 91 H 18 05/29/23 10:00 105/64 05/29/23 09:30 97 H 19 05/29/23 09:30 107/66 05/29/23 09:30 107/66 05/29/23 09:00 98 H 17 05/29/23 09:00 114/65 05/29/23 08:30 105 H 18 18 L 05/29/23 08:30 109/59 L 05/29/23 08:02 109/47 L 05/29/23 08:02 110 H 18 05/29/23 08:00 124 H 20 05/29/23 07:58 106/54 L 05/29/23 07:58 117 H 17 05/29/23 07:30 109 H 20 05/29/23 07:00 114 H 18 05/29/23 07:00 103/58 L 05/29/23 08:30 98 05/29/23 06:08 114 H 20 97/50 L 97 O2 Del Method O2 Del Method 05/29/23 13:30 05/29/23 13:30 05/29/23 13:00 05/29/23 13:00 05/29/23 12:30 05/29/23 12:00 05/29/23 11:30 05/29/23 11:30 05/29/23 11:00 05/29/23 11:00 05/29/23 11:00 05/29/23 10:30 05/29/23 10:30 05/29/23 10:00 05/29/23 10:00 05/29/23 09:30 05/29/23 09:30 05/29/23 09:30 05/29/23 09:00 05/29/23 09:00 05/29/23 08:30 05/29/23 08:30 05/29/23 08:02 05/29/23 08:02 05/29/23 08:00 05/29/23 07:58 05/29/23 07:58 05/29/23 07:30 05/29/23 07:00 05/29/23 07:00 05/29/23 08:30 Room Air 05/29/23 06:08 Room Air Laboratory Results as per HPI. reviewed in detail.
--- NOTE | 2023-05-29 16:01 | Hospitalist Progress Note ---
Date of Service May 29, 2023 Assessment & Plan (1) Tachyarrhythmia: Plan: 42-year-old female past med significant for asthma, history of COVID 2 years ago, history of palpitations, history of familial hyperuricemia and kidney stones as per patient who is currently at [facility] was brought in because of SVT. Tachyarrhythmia SVT Presented with SVT; resolved with IV adenosine EKG on admission personally reviewed; sinus rhythm with incomplete RBBB. Echocardiogram shows EF of 65 to 70%. Continue on telemetry monitoring. Started on metoprolol succinate as per recommendation by cardiology Hypokalemia Persistent hypokalemia for several months. Potassium of 3.1 today We will start her on 40 mEq of potassium daily History of asthma Patient is not using her inhalers regularly because of concerns for palpitations Currently stable History of familial hyperuricemia since child as per patient Patient states she takes allopurinol 100 mg p.o. daily Vitamin D deficiency Vitamin D level of 11.1. 50,000 units weekly for 6-week and 2000/day after that. DVT prophylaxis Lovenox Disposition Telemetry floor Full code Please note the above document was generated using voice recognition software. It may contain grammatical, syntax or spelling errors. Any formal questions or concerns about the content, text or information contained within the body of this dictation should be directly addressed to the provider for clarification Admission and Anticipated Discharge Date Admission Date: May 29, 2023 Subjective Patient seen and examined at bedside. drill runner was used to communicate. Patient reports that palpitation has resolved. Telemetry does not show any SVT. Sinus tachycardia present. Review of Systems Review of Systems: All systems reviewed & are unremarkable except as noted in Subjective Physical Exam Physical Exam: Constitutional: Alert orient x3; not in distress. Respiratory: Bilateral vesicular breath sound. Cardiovascular: RRR, no murmur, no edema Vessels: no JVD or carotid bruit Chest: normal inspection of chest Abdomen: normal bowel sounds, soft, nontender, no hepatosplenomegaly Musculoskeletal: no cyanosis or clubbing, extremities motor strength 5/5 Skin: no rashes, warm and dry normal turgor Neurologic: PERRL, EOMI, accommodation nl, no face palsy, no dysarthria CN's II- XI intact bilaterally and moves all extremities Psychiatric: A+Ox3, euthymic affect Results & Data Results & Data Vital Signs (Past 12 Hours) Vital Signs Pulse Pulse Resp BP BP Pulse Ox Pulse Ox 05/29/23 13:30 108 H 23 97 05/29/23 13:30 113/66 05/29/23 13:00 94 H 18 05/29/23 13:00 105/69 05/29/23 12:30 98 H 21 05/29/23 12:00 111 H 20 05/29/23 11:30 97 H 20 05/29/23 11:30 109/69 05/29/23 11:00 99 H 21 05/29/23 11:00 106/63 05/29/23 11:00 106/63 05/29/23 10:30 94 H 17 05/29/23 10:30 95/74 L 05/29/23 10:00 91 H 18 05/29/23 10:00 105/64 05/29/23 09:30 97 H 19 05/29/23 09:30 107/66 05/29/23 09:30 107/66 05/29/23 09:00 98 H 17 05/29/23 09:00 114/65 05/29/23 08:30 105 H 18 18 L 05/29/23 08:30 109/59 L 05/29/23 08:02 109/47 L 05/29/23 08:02 110 H 18 05/29/23 08:00 124 H 20 05/29/23 07:58 106/54 L 05/29/23 07:58 117 H 17 05/29/23 07:30 109 H 20 05/29/23 07:00 114 H 18 05/29/23 07:00 103/58 L 05/29/23 08:30 98 05/29/23 06:08 114 H 20 97/50 L 97 O2 Del Method O2 Del Method 05/29/23 13:30 05/29/23 13:30 05/29/23 13:00 05/29/23 13:00 05/29/23 12:30 05/29/23 12:00 05/29/23 11:30 05/29/23 11:30 05/29/23 11:00 05/29/23 11:00 05/29/23 11:00 05/29/23 10:30 05/29/23 10:30 05/29/23 10:00 05/29/23 10:00 05/29/23 09:30 05/29/23 09:30 05/29/23 09:30 05/29/23 09:00 05/29/23 09:00 05/29/23 08:30 05/29/23 08:30 05/29/23 08:02 05/29/23 08:02 05/29/23 08:00 05/29/23 07:58 05/29/23 07:58 05/29/23 07:30 05/29/23 07:00 05/29/23 07:00 05/29/23 08:30 Room Air 05/29/23 06:08 Room Air Laboratory Results Laboratory Results WBC 10.71 K/ul (4.8-10.8) 05/29/23 04:23 RBC 3.07 M/uL (4.20-5.40) L 05/29/23 04:23 Hgb 9.5 g/dl (12.0-16.0) L 05/29/23 04:23 Hct 27.6 % (37.0-47.0) L 05/29/23 04:23 MCV 89.9 fL (80.0-100.0) 05/29/23 04:23 MCH 30.9 pg (25.0-34.0) 05/29/23 04:23 MCHC 34.4 g/dL (32.0-36.0) 05/29/23 04:23 RDW Std Deviation 48.6 fL (36.4-46.3) H 05/29/23 04:23 RDW Coeff of Bola 14.6 % (11.5-14.5) H 05/29/23 04:23 Plt Count 262 K/uL (130-400) 05/29/23 04:23 MPV 10.8 fL (9.4-12.4) 05/29/23 04:23 Immature Gran % (Auto) 0.2 % 05/29/23 04:23 Neut % (Auto) 95.7 % 05/29/23 04:23 Lymph % (Auto) 2.9 % 05/29/23 04:23 [place] % (Auto) 1.1 % 05/29/23 04:23 Eos % (Auto) 0.0 % 05/29/23 04:23 Baso % (Auto) 0.1 % 05/29/23 04:23 Neut # (Auto) 10.25 K/uL (1.40-6.50) H 05/29/23 04:23 Lymph # (Auto) 0.31 K/uL (1.20-3.40) L 05/29/23 04:23 [place] # (Auto) 0.12 K/uL (0.11-0.59) 05/29/23 04:23 Eos # (Auto) 0.00 K/uL (0.00-0.50) 05/29/23 04:23 Baso # (Auto) 0.01 K/uL (0.00-0.20) 05/29/23 04:23 Immature Gran # (Auto) 0.02 K/uL (0.01-0.20) 05/29/23 04:23 PT 10.8 Seconds (9.0-12.0) 05/28/23 Unknown INR 1.0 (0.9-1.1) 05/28/23 Unknown D-Dimer 420 ug/L FEU (0-500) 05/28/23 Unknown Sodium 142 mmol/L (136-145) 05/29/23 04:23 Potassium 3.1 mmol/L (3.5-5.1) L 05/29/23 04:23 Chloride 117 mmol/L (98-107) H 05/29/23 04:23 Carbon Dioxide 19 mmol/L (21-32) L 05/29/23 04:23 Anion Gap 6 (3-11) 05/29/23 04:23 BUN 6 mg/dl (6-23) 05/29/23 04:23 Creatinine 0.46 mg/dl (0.6-1.2) L 05/29/23 04:23 Est Cr Clr Drug Dosing 124.3 ml/min 05/29/23 04:23 Est GFR ( Amer) 141.2 ml/min 05/29/23 04:23 Est GFR (Non-Af Amer) 121.8 ml/min 05/29/23 04:23 BUN/Creatinine Ratio 13.0 (10-20) 05/29/23 04:23 Glucose 136 mg/dl (70-99(Fasting)) H 05/29/23 04:23 Uric Acid 6.0 mg/dl (2.6-7.2) 05/29/23 04:23 Calcium 7.2 mg/dl (8.6-10.3) L 05/29/23 04:23 Phosphorus 2.7 mg/dl (2.5-4.9) 05/29/23 04:23 Magnesium 2.0 mg/dl (1.7-2.4) 05/29/23 04:23 Total Bilirubin 0.8 mg/dl (0.2-1.0) 05/28/23 Unknown AST 12 U/L (13-39) L 05/28/23 Unknown ALT 10 U/L (7-52) 05/28/23 Unknown Alkaline Phosphatase 64 U/L (34-104) 05/28/23 Unknown Troponin I High Sens 56.9 pg/ml (0-14) H* D 05/29/23 12:06 Total Protein 7.1 gm/dl (6.0-8.3) 05/28/23 Unknown Albumin 4.1 gm/dl (3.4-5.0) 05/28/23 Unknown Globulin 3.0 gm/dl (2.5-4.0) 05/28/23 Unknown Albumin/Globulin Ratio 1.4 (0.9-2) 05/28/23 Unknown Lipase 14 U/L (11-82) 05/28/23 Unknown Vitamin B12 220 pg/ml (180-914) 05/29/23 04:23 25-OH Vitamin D Total 11.1 ng/ml (30-100) L 05/29/23 04:23 Procalcitonin 0.05 ng/ml (0-0.5) 05/29/23 00:20 TSH 0.784 uIu/ml (0.300-4.500) 05/28/23 Unknown HCG, Qual Negative (Negative) 05/29/23 00:20 SARS-CoV-2, RNA, NAAT NEGATIVE (NEGATIVE) 05/28/23 22:59 Impressions Chest X-Ray 05/28/23 21:18 XR chest 1V portable CLINICAL HISTORY: Chest pain, nonspecific TECHNIQUE: Single frontal radiograph of the chest was obtained. Comparison: Comparison is made to chest radiograph 01/12/2023 FINDINGS: No lines and tubes are seen. The cardiomediastinal silhouette is normal. The lungs are clear. No evidence of pleural effusion or pneumothorax. IMPRESSION: No acute chest disease. ACT 112: Negative or not required by law. Electronically signed by: Franck Howard M.D. 05/29/2023 7:14 AM
[2023-05-29 16:06] LABS: BUN Creatinine Ratio 13.7 (10-20); Creatinine Clr Calc Pharmacy 112.1 ml/min; Est GFR (African American) 136.5 ml/min; Est GFR (Non-African American) 117.8 ml/min; Potassium 3.9 mmol/L (3.5-5.1)
[2023-05-29] MEDS: METOPROLOL SUCC 25MG EXT REL TAB PO SCH (16:44)
[2023-05-29 20:32] LABS: Appearance Urine Clear (Clear); Bilirubin Urine Negative (Negative); Blood Urine Negative (Negative); Color Urine Yellow; Glucose Urine UA Negative (Negative); Ketones Urine 2+ (Negative); Leukocyte Esterase Urine Negative (Negative); Nitrite Urine Negative (Negative); Protein Urine Negative (Negative); Specific Gravity Urine 1.008 (1.000-1.030); Urobilinogen Urine Negative (Negative)
[2023-05-29 20:46] LABS: Potassium Random Urine 19.1 mmol/L
[2023-05-29 20:59] LABS: Creatinine Urine Random 28.8 mg/dl
[2023-05-30 07:21] LABS: Chol HDL Ratio 2.5 (0-5)
[2023-05-30 07:55] LABS: BUN Creatinine Ratio 24.5 (10-20); Calcium 8.4 mg/dl (8.6-10.3); Creatinine Clr Calc Pharmacy 106.9 ml/min; Est GFR (African American) 134.8 ml/min; Est GFR (Non-African American) 116.3 ml/min; Potassium 4.5 mmol/L (3.5-5.1)
[2023-05-30] MEDS: ENOXAPARIN INJ 40 MG/0.4 ML SYR SQ SCH (09:48)
[2023-05-30] MEDS: MONTELUKAST SODIUM 10 MG TABLET PO SCH (09:48)
--- NOTE | 2023-05-30 09:52 | Cardiology Progress Note ---
Date of Service May 30, 2023 Assessment & Plan Admission and Anticipated Discharge Date Admission Date: May 29, 2023 Supervising Physician Co-Signing Physician Notes Pt seen and examined with [facility] staff Concur with observations and plans 42 yo woman presenting with palpitations * EMS called * HR 180 BPM * Rx with IV adenosine * HR improved to 130's * EKG - sinus tach 130's; nonspecific ST abnormalities * No Delta Waves * QTC does not appear to be markedly prolonged (although reported to be greater than 500ms) * No Brugada pattern * Concern for SVT * Tn - 14 - 41 * K+ on presentation - 2.6 * Mag++ on presentation - 2.4 * TSH - 0.7 - WNL * Beta HCG - negative * Tox screen - PENDING * No major HTN * Hx of hypokalemia Plans: * SVT * SVT may be driven by hypokalemia * Underlying reason for Hypokalemia unclear as patient is not on diuretics * Question of potassium wasting - * Pt has metabolic acidosis - non gap - she may have an RTA leading to hypokalemia * Personally spoke to nephrology - plans for outpt work up * Transthoracic ECHO - completed - LVEF 65-70%; no WMA. RV normal size/function. No significant or MR. Atria normal size. No evidence of ASD * Lipid Panel as an outpt * Continue Toprol XL 25 mg po per day * K+ is corrected - 4.5 * Lower abdominal fullness - plans for imaging * [email or web address] * Please call back with any additional questions Augie Reinoso Subjective Events overnight: Subjective: Review of Systems Review of Systems: All systems reviewed & are unremarkable except as noted in HPI & below Physical Exam Physical Exam: No elevation in JVP S1S2 tachycardic 2/6 systolic murmur CTA B + BS No c/c/e Results & Data Vital Signs (Past 12 Hours) Vital Signs Temp Pulse Pulse Resp BP BP Pulse Ox 05/30/23 07:15 36.8 C 57 L 18 106/66 97 05/30/23 02:51 37 C 67 16 106/67 97 05/29/23 21:58 101 H 05/29/23 22:51 37 C 71 16 106/61 96 O2 Del Method 05/30/23 07:15 Room Air 05/30/23 02:51 Room Air 05/29/23 21:58 05/29/23 22:51 Room Air Laboratory Results Cardiac Enzymes 05/29/23 05/29/23 Range/Units 12:06 17:21 Troponin I High Sens 56.9 H* D 43.4 H D (0-14) pg/ml Lipids 05/30/23 Range/Units 06:28 Triglycerides 50 (0-150) mg/dl Cholesterol 117 (0-200) mg/dl HDL Cholesterol 47 mg/dl Cholesterol/HDL Ratio 2.5 (0-5) Comprehensive Metabolic Panel 05/29/23 05/30/23 Range/Units 14:54 06:28 Sodium 141 139 (136-145) mmol/L Potassium 3.9 D 4.5 (3.5-5.1) mmol/L Chloride 118 H 113 H (98-107) mmol/L Carbon Dioxide 16 L 20 L (21-32) mmol/L BUN 7 13 (6-23) mg/dl Creatinine 0.51 L 0.53 L (0.6-1.2) mg/dl Glucose 138 H 109 H (70-99(Fasting)) mg/dl Calcium 8.0 L 8.4 L (8.6-10.3) mg/dl Intake and Output 05/29/23 05/30/23 05/30/23 22:59 06:59 14:59 Intake Total 1200 / 2333 Output Total 300 / 800 500 / 800 Balance 900 / 1533 -500 / 1533 Intake: IV 1000 / 2133 Sodium Chloride 0.9% 1,000 ml @ 1000 / 1625 125 mls/hr IV .Q8H [facility] Rx#: [id number] Oral 200 / 200 Output: Urine 300 / 800 500 / 800 Other: Weight 55.4 kg Weight Measurement Method Standing Scale Medications Administered Current Inpatient Medications Acetaminophen (Acetaminophen 325 Mg Tab) 650 mg PO Q4H PRN PRN Reason: Pain or Fever Stop: 06/28/23 01:21 Enoxaparin Sodium (Enoxaparin Inj 40 Mg/0.4 Ml Syr) 40 mg SQ Q24H [facility] Stop: 06/28/23 08:59 Last Admin: 05/30/23 09:48 Dose: 40 mg Metoprolol Succinate (Metoprolol Succ 25mg Ext Rel Tab) 25 mg PO QAM [facility] Stop: 06/28/23 15:59 Last Admin: 05/29/23 16:44 Dose: 25 mg Metoprolol Tartrate (Metoprolol Tartrate 1 Mg/Ml Vial) 5 mg IV Q6 PRN PRN Reason: Tachycardia Stop: 06/28/23 01:21 Montelukast Sodium (Montelukast Sodium 10 Mg Tablet) 10 mg PO DAILY REMBERTO Stop: 06/28/23 08:59 Last Admin: 05/30/23 09:48 Dose: 10 mg Nitroglycerin (Nitroglycerin Sl 0.4 Mg/Tab Tab) 0.4 mg SL Q5M PRN PRN Reason: Chest Pain Stop: 06/28/23 01:21 Polyethylene Glycol (Polyethylene (Miralax) 17 Gm Pack) 17 gm PO DAILY PRN PRN Reason: Constipation Stop: 06/28/23 01:21
--- NOTE | 2023-05-30 10:17 | Nephrology Progress Note ---
Date of Service May 30, 2023 Assessment & Plan Admission and Anticipated Discharge Date Admission Date: May 29, 2023 Subjective Assessment & Plan (1) Hypokalemia: 2 times she was found to have low K ( actually very low) without any obvious causes ( diuretics, Severe Vomiting or Diarrhea or severe malnutrition). Also nothing to suggest she is taking OTC diuretics or laxatives as part of eating disorder or trying to loose weight desperately.Does not have met acidosis--normal for Chloride to go up and Bicarb to go down after Aggressive Normal Saline infusion. No need to do workup for RTA at this time nor will be accurate. timing of the Fractional excretion of K was not ideal as by that time K was normal at 3.9. FEK came at 8% more consistent with non renal cause. Also the way K has normalized fairly easily and fast is not consistent with renal wasting. She also claims that she has had many blood tests in the past and did not have Low K. At this point there is no e/o Renal K wasting which are most of the time very long standing duration. Low K from Non renal cause ( likely nutritional) Given that she has had 2 situation for low K I would still put her On daily k 20 meq and mag 400 daily. Also encourage high K food--needs to go with a list. needs BMP done every week x [address] Solorzano Can evaluate that. (2) Tachyarrhythmia: Low electrolytes can contribute harriet when K is as low as 2.6. ECHO reviewed and is normal (3) Atrial flutter: per cards. S--no new issues. K is now normal. Physical Exam C Physical Exam: No resp Distress. neck Supple. MM--moist. Constitutional: well developed; no acute distress Neck: No JVD Respiratory: normal respiratory effort. no crackles, no rales and no rhonchi Cardiovascular: Rate/Rhythm: regular rate, regular rhythm and + tachycardic Heart Sounds: + murmur (2/6 systolic murmur) no edema Gastrointestinal (Abdomen): soft, nontender, Neurologic: No focal deicit Results & Data Vital Signs (Past 12 Hours) Vital Signs Temp Pulse Pulse Resp BP BP Pulse Ox 05/30/23 10:05 79 05/30/23 07:15 36.8 C 57 L 18 106/66 97 05/30/23 02:51 37 C 67 16 106/67 97 05/29/23 22:51 37 C 71 16 106/61 96 O2 Del Method 05/30/23 10:05 05/30/23 07:15 Room Air 05/30/23 02:51 Room Air 05/29/23 22:51 Room Air
[2023-05-30] MEDS: METOPROLOL SUCC 25MG EXT REL TAB PO SCH (10:20)
[2023-05-30] MEDS ORDERED: OPTIRAY 320 100ml IV ONE (11:51)
--- NOTE | 2023-05-30 12:17 | CT Scan Report ---
CT abdomen pelvis wo/w con CLINICAL HISTORY: Right flank flank. ?Renal stone TECHNIQUE: Helical axial images of the abdomen and pelvis were obtained. Automated dose lowering tech niques and/or adjustment according to patient size were utilized for this exam. This exam was perfor med with and without intravenous contrast. CT DOSE: 1057.88 mGy.cm COMPARISON: FINDINGS: Lower chest: No acute abnormality. Liver: Unremarkable. No focal lesions are seen. Gallbladder and biliary tree: Patient is status post cholecystectomy. No intra- or extrahepatic bilia ry ductal dilation. Pancreas: Unremarkable, no focal lesions. Spleen: Unremarkable. Adrenals: Unremarkable. Kidneys and ureters: Unremarkable. Bladder: Unremarkable. Reproductive organs: Unremarkable. Bowel: The appendix is normal. Lymph nodes Retroperitoneal: Unremarkable. Pelvic: Unremarkable. Mesenteric: Unremarkable. Peritoneum: A small amount of peritoneal stranding is noted in the region of the gallbladder fossa. Vessels: Unremarkable. Abdominal wall: Unremarkable. Bones: Unremarkable. IMPRESSION: 1. No evidence of right renal stone. 2. Nonspecific trace right upper quadrant peritoneal stranding. In the absence of infectious/inflamm atory process, this may represent trace ascites in this patient presenting with tachycardia and hypok alemia. ACT 112: Negative or not required by law. Electronically signed by: Franck Howard M.D. 05/30/2023 12:15 PM
--- NOTE | 2023-05-30 12:40 | Discharge Summary ---
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 Patient states since last 2 years when she had COVID she is having these palpitations on and off. She was in the ER in January of this year with palpitations and found to have hypokalemia and hypomagnesia which were replaced and after fluids she felt better and she was discharged. Patient states since last 2 days she is feeling palpitations but kept quiet hoping they will resolve but they are not getting better. States she felt some chest pain going to the neck yesterday but that resolved now. [place] nauseous but resolved now. [place] short of breath but is better now. No fevers. Has some headache. Vision is okay. No runny nose or sore throat. No difficulty swallowing. States he is eating okay. Somewhat constipated. Denies blood in the stools. Micturating fine. No rash currently. Seems for EMS her heart rate was in the 180s and received IV adenosine. In the ER her heart rate was in 140s. Received currently 2 dose of IV Lopressor 5mg. Heart rate in 100s to 120 range. Blood pressure somewhat soft. Resting comfortably. Patient is Slovak- speaking and have to use translation service. Past medical history as mentioned above Past surgical history. Cholecystectomy Social history. Denies smoking. No alcohol use. No drug use Family history. Father had asthma, CAD, kidney disease, and female hyperuricemia. Paternal grandmother asthma. Maternal grand mother had colon cancer, 2 AUNTS has breast cancer. Maternal grandmother brother had stomach cancer Admission Exam Per Admitting Provider General- not in distress Head- atraumatic Eyes- PERRL. ENT- oropharynx clear Neck- supple, no JVD. Lungs- clear to auscultation no wheezing or crackles Heart- regular rhythm; tachycardia, no murmur, no gallop. Abdomen- normal bowel sounds, soft, nontender, no distension. Extremities- no pretibial edema, no erythema seen. Neuro- alert, oriented x 3; PERRL, no facial palsy; no dysarthria; obeys commands. Skin- warm & dry Principal Diagnosis Supraventricular tachycardia Hypokalemia Discharge Exam Constitutional: WD/WN, vitals as above, NAD, sitting up in bed, pleasant, conversing easily Respiratory: normal respiratory effort, lungs clear to auscultation, no wheeze, rales, rhonchi. Normal insp/exp effort, no accessory muscle use Cardiovascular: RRR, no murmur, no edema Vessels: no JVD or carotid bruit Chest: normal inspection of chest Abdomen: normal bowel sounds, soft, nontender, no hepatosplenomegaly Musculoskeletal: no cyanosis or clubbing, extremities motor strength 5/5 Skin: no rashes, warm and dry normal turgor Neurologic: PERRL, EOMI, accommodation nl, no face palsy, no dysarthria CN's II- XI intact bilaterally and moves all extremities Psychiatric: A+Ox3, euthymic affect Discharge Data Allergies Allergy/AdvReac Type Severity Reaction Status Date / Time shrimp Allergy Severe From Verified 01/12/23 20:08 childhood Consultations 05/28/23 23:12 ED Decision to Admit Stat 05/29/23 08:00 Consult Cardiology Routine 05/29/23 12:02 Consult Nephrology Routine Ordered Studies 05/30/23 09:17 CT abdomen pelvis wo/w con Urgent Hospital Course (1) Tachyarrhythmia: 42-year-old female past med significant for asthma, history of COVID 2 years ago, history of palpitations, history of familial hyperuricemia and kidney stones as per patient [facility] was brought in because of SVT. She was managed for following condition during the hospitalization. Tachyarrhythmia SVT Patient presented with SVT; resolved with IV adenosine with EMS. EKG on admission personally reviewed; sinus rhythm with incomplete RBBB. Echocardiogram shows EF of 65 to 70%. During the hospitalization, cardiology was consulted for comanagement. Patient was started on Lopressor 25mg once daily and telemetry monitoring was done. Patient remained in sinus rhythm throughout the hospitalization. Hypokalemia Persistent hypokalemia for several months. Potassium of 3.1 on admission During the hospitalization, nephrology was consulted for comanagement Urine electrolytes studies were done; renal cause was ruled out. Nephrology recommended 40 mEq of potassium daily Vitamin D deficiency Vitamin D level of 11.1. 50,000 units weekly for 6-week and 2000/day after that. Lower abdominal pain CT abdomen and pelvis was done as patient reported dull pain in lower abdomen; no acute findings were seen. Nonspecific trace right upper quadrant peritoneal stranding was seen. Patient discharged back; discussed with the medical provider at the facility. Please note the above document was generated using voice recognition software. It may contain grammatical, syntax or spelling errors. Any formal questions or concerns about the content, text or information contained within the body of this dictation should be directly addressed to the provider for clarification Total Time Total Time Spent Total Time Spent (In Minutes): 45 Total Time Includes: Examination of the Patient, Discharge Planning, Medication Reconciliation, Communication With Other Providers and Other Discharge Plan Discharge Items [facility] Disposition[facility] Reason For Visit: SVT Discharge Diagnosis: SVT Activity: Resume your previous activity Non-emergency contact: Primary Care Provider Call non-emergency contact if: you have any medication questions and your symptoms worsen Follow-up/Referrals: Gerald Stewart DO [Primary Care Provider] - Diet: Regular Addtl Attending Provider Instructions: You were admitted to the hospital due to high heart rate. Cardiology evaluated you during the hospitalization. Echocardiogram was done with EF of 65 to 70% which is normal. You were started on metoprolol 25 mg once a day. Please continue to take potassium and magnesium supplement For the abdominal pain, CT of abdomen pelvis was done-no acute finding. Small amount of trace right upper quadrant peritoneal stranding, non-specific. You can take Tylenol as as needed. If pain is severe; you might need repeat imaging with contrast. Your vitamin D was found to be on the lower side (11); you need to take 50,000 units of vitamin D weekly for 6 weeks; then start taking 1000 to 2000 units/day. Vitamin D level can be checked in 2 months time. Pending Studies at Discharge: No Stand-Alone Forms: My Oxyntix, Smoking Cessation Skilled Items Patient informed of condition?: No Discharge Level of Care: Other Communicable Disease: No Discharge Prognosis: Stable Lines: None Urinary Catheter: No Medications and DC Order Prescriptions: New acetaminophen 325 mg Tablet 650 mg PO Q4H PRN (Reason: fever or pain) Qty: 30 0RF cholecalciferol (vitamin D3) [Vitamin D3] 125 mcg (5,000 unit) tablet 50,000 unit PO .weekly 42 Days Qty: 60 0RF metoprolol succinate 25 mg Tablet Extended Release 24 Hr 25 mg PO QAM Qty: 30 0RF Continued montelukast 10 mg Tablet 10 mg PO DAILY Dulera 200-5 mcg/actuation Hfa Aerosol Inhaler 2 puff INHALATION BID magnesium oxide [MagOx] 400 mg (241.3 mg magnesium) tablet 400 mg PO DAILY Qty: 7 0RF potassium chloride 20 mEq tablet extended release 20 meq PO DAILY Qty: 7 0RF Discharge Orders: Discharge Order (Routine); Ordered 05/30/23 Ordered By: Matthew Taylor Admission Data Admit Date/Time: 05/29/23 00:11 Attending Provider: Matthew Taylor Admit Provider: Derrick Perez Primary Care Provider: Gerald Stewart Other Providers: Derrick Perez ; Kylie Gonzalez ; Fritz London ; Aysha Carias ; Shavon Galan ; Keena Rader ; Maricruz Govea
--- NOTE | 2023-05-30 16:42 | Electrocardiogram Report ---
Test Reason : Blood Pressure : / mmHG Vent. Rate : 054 BPM Atrial Rate : 054 BPM P-R Int : 152 ms QRS Dur : 084 ms QT Int : 438 ms P-R-T Axes : 061 053 043 degrees QTc Int : 415 ms Sinus bradycardia with Premature atrial complexes Otherwise normal ECG When compared with ECG of 29-MAY-2023 10:17, Premature atrial complexes are now Present Vent. rate has decreased BY 41 BPM Confirmed by Kenny Mcdonald ([id number]) on 05/30/2023 4:42:17 PM Referred By: REFERRED SELF Confirmed By:Kenny Mcdonald
[2023-06-01 18:13] LABS: Magnesium, Random Urine 28 mg/g creat (22-130)
== END 2023-05-30 14:02 | DRG 309 ==
LOC: ED 21:01 → EDINP 05-29 00:11 → 2S 05-29 19:47